=== PATIENT | female | born 1990 | race African-American/Black ===

== ENCOUNTER 2017-02-15 18:58 | Emergency (ER) | payer SELFPAY ==
[~2017-02-15 18:58] MED LIST: ANSAID100 MG PO; ATIVAN PO; BACTRIM DS TABL1 TAB PO; BIRTH CONTROL PILL PO; DIFLUCAN; FLEXERIL PO; FLONASE16 GM; IMPLANON68 MG/IMPL SQ; Implanon; NAPROSYN500 MG PO; NAPROXEN PO; NO MEDICATIONS; PHENERGAN25 MG PO; PRENATAL MULTIV1 TA1 PO; PYRIDIUM PO; ZOFRAN ODT4 MG PO
[2017-02-15] MEDS ORDERED: NO MEDICATIONS (19:04)
== END 2017-02-15 19:25 | disposition home or self-care (01) ==
LOC: SED 18:58
DX: J20.9 Acute bronchitis, unspecified (principal); H66.93 Otitis media, unspecified, bilateral; J00 Acute nasopharyngitis [common cold]; Z79.899 Other long term (current) drug therapy
CPT/HCPCS: 99283